=== PATIENT | female | born 1950 | race Caucasian/White ===

== ENCOUNTER → 2020-09-07 | Outpatient (CLI) | payer MEDICARE, OTHER ==
--- NOTE | 2020-09-07 15:30 | CARD ---
MR#: [id number] Date of Study: 09/07/2020 Ordering Physician: VISHNU LARSEN, Referring Physician: VISHNU LARSEN, Tech: Roxi Benton, [facility] APPROVED REPORT EXAM: Two-dimensional and M-mode echocardiogram with Doppler and color Doppler. Other Information Quality : AverageHR: 67bpm INDICATION CAD RISK FACTORS Diabetes 2D DIMENSIONS RVDd3.0 (2.9-3.5cm)Left Atrium(2D)3.2 (1.6-4.0cm) IVSd0.8 (0.7-1.1cm)Aortic Root(2D)2.5 (2.0-3.7cm) LVDd4.5 (3.9-5.9cm)LVOT Diameter1.9 (1.8-2.4cm) PWd0.9 (0.7-1.1cm)LVDs2.2 (2.5-4.0cm) FS (%) 50.7 %SV75.7 ml LVEF(%)82.1 (>50%) Aortic Valve AoV Peak Jas.114.2cm/sAoV VTI24.3cm AO Peak GR.5.2mmHgLVOT Peak Jas.86.7cm/s LVOT VTI 18.51cmAO Mean GR.3mmHg WALTER (VMAX)1.24ug4XBH (VTI)2.16cm2 Mitral Valve MV E Jbxuyfhw44.5cm/sMV DECEL [id number] MV A Zjtfdcsp70.6cm/sMV HZP48oz E/A Ratio0.9MVA (PHT)2.64cm2 TDI E/Lateral E'8.5E/Medial E'7.6 Pulmonary Valve PV Peak Irdqevtz47.7cm/sPV Peak Grad.3mmHg Tricuspid Valve TR P. Nhrryhcf471im/sRAP MSANZVGE2kwVr TR Peak Gr.05kzXtZWXX20lzHa Pulmonary Vein S1 Hpcozinf39.3cm/sD2 Ebwradrl04.4cm/s PVa edbgsndm638smmf LEFT VENTRICLE The left ventricle is normal size. There is normal left ventricular wall thickness. The left ventricu lar systolic function is normal. The Ejection Fraction is 55-60%. There is normal LV segmental wall m otion. Transmitral Doppler flow pattern is Grade I-abnormal relaxation pattern. RIGHT VENTRICLE The right ventricle is normal size. There is normal right ventricular wall thickness. The right ventr icular systolic function is normal. ATRIA The left atrium size is normal. The right atrium size is normal. The interatrial septum is intact wit h no evidence for an atrial septal defect or patent foramen ovale as noted on 2-D or Doppler imaging. AORTIC VALVE The aortic valve is thickened but opens well. Doppler and Color Flow revealed no significant aortic r egurgitation. There is no significant aortic valvular stenosis. Calculated aortic valve area is 1.99 cm2 with maximum pressure gradient of 6 mmHg and mean pressure gradient of 3 mmHg. MITRAL VALVE The mitral valve is normal in structure and function. There is no evidence of mitral valve prolapse. There is no mitral valve stenosis. Doppler and Color-flow revealed trace mitral regurgitation. TRICUSPID VALVE The tricuspid valve is normal in structure and function. Doppler and Color Flow revealed trace tricus pid regurgitation with an estimated PAP of 30 mmHg. There is no tricuspid valve stenosis. PULMONIC VALVE The pulmonic valve is not well visualized. Doppler and Color Flow revealed trace pulmonic valvular re gurgitation. GREAT VESSELS The aortic root is normal in size. The ascending aorta is normal in size. The IVC is normal in size a nd collapses >50% with inspiration. PERICARDIAL EFFUSION There is no evidence of significant pericardial effusion. Critical Notification Critical Value: No <Conclusion> The left ventricular systolic function is normal. The Ejection Fraction is 55-60%. There is normal LV segmental wall motion. Transmitral Doppler flow pattern is Grade I-abnormal relaxation pattern. Trace mitral regurgitation. Trace tricuspid regurgitation with an estimated PAP of 30 mmHg. There is no evidence of significant pericardial effusion. Signed by : Vishnu Larsen, Electronically Approved : 09/07/2020 15:30:03
== END ==
LOC: ECHO 09:56
PROVIDERS: ATTEND Internal Medicine Cardiovascular Disease
DX: I70.90 Unspecified atherosclerosis (principal)
CPT/HCPCS: 93306